=== PATIENT | female | born 1980 | race African-American/Black ===

== ENCOUNTER 2019-01-20 12:55 | Inpatient (IN) | payer OTHER ==
[2019-01-20 14:08] VITALS: BMI 30.5
[2019-01-20] MEDS ORDERED: ELECTROLYTE-148 SOLN 1,000 ML IV SCH ×2 (14:30→15:30)
[2019-01-20] MEDS ORDERED: CITRIC ACID/SODIUM CITRATE 30 ML UNIT-DOSE CUP PO ONE (14:30)
--- NOTE | 2019-01-20 15:00 | HP ---
Past Medical History - Past Medical History ...: 4 ...Para: 3 ...Term: 3 ...: 0 ...Spon : 0 ...Induced : 0 ...LMP: 04/21/18 ... Weeks Gestation by Dates: 39.1 ...EDC by Dates: 01/26/19 ...EDC by Sono: 01/25/19 - Past Surgical History Past Surgical History: Yes: Hx Myomectomy: No Hx Transabdominal Cerclage: No - Smoking History Smoking history: Never smoked Have you smoked in the past 12 months: No - Alcohol/Substance Use Hx Alcohol Use: No History of Substance Use: reports: None - Social History Usual Living Arrangement: Yes: With Spouse History of Recent Travel: No Home Medications - Allergies Allergies/Adverse Reactions: Allergies Allergy/AdvReac Type Severity Reaction Status Date / Time aspirin Allergy Verified 01/20/19 14:10 - Home Medications Home Medications: Ambulatory Orders Ferrous Sulfate 1 tab PO DAILY 01/20/19 Vits96/Iron Fum/Folic [ Tablet] 1 tab PO DAILY 01/20/19 Review of Systems - Review of Systems Constitutional: reports: No Symptoms Eyes: reports: No Symptoms HENT: reports: No Symptoms Neck: reports: No Symptoms Cardiovascular: reports: No Symptoms Respiratory: reports: No Symptoms Gastrointestinal: reports: No Symptoms Genitourinary: reports: No Symptoms Breasts: reports: No Symptoms Reported Musculoskeletal: reports: No Symptoms Integumentary: reports: No Symptoms Neurological: reports: No Symptoms Endocrine: reports: No Symptoms Hematology/Lymphatic: reports: No Symptoms Psychiatric: reports: No Symptoms Physical Exam - Maternity Vital Signs: Vital Signs Temperature 98.2 F 01/20/19 14:02 Pulse Rate 72 01/20/19 14:02 Respiratory Rate 18 01/20/19 14:02 Blood Pressure 113/59 L 01/20/19 14:02 O2 Sat by Pulse Oximetry (%) Constitutional: Yes: Well Nourished, No Distress, Calm Eyes: Yes: WNL, Conjunctiva Clear, EOM Intact HENT: Yes: WNL, Atraumatic, Normocephalic Neck: Yes: WNL, Supple, Trachea Midline Cardiovascular: Yes: WNL, Regular Rate and Rhythm Breast(s): Yes: WNL - Abdominal Exam/OB Fundal Height: 38 Number of Fetuses: Single Presentation: Vertex Intensity: Unaware Monitor Mode: External Heart Rate Location: [facility] Category: I Accelerations: Uniform - Vaginal Exam/OB Vaginal Bleediing: No Speculum Exam: No Dilatation (cm): closed Effacement (%): 0 Amniotic Membrane Status: Intact Presentation: Vertex/Position Station: -3 - Physical Exam Extremities: Yes: WNL Edema: Yes Edema: LLE: Trace, RLE: Trace Deep Tendon Reflex Grade: Normal +2 Psychiatric: Yes: WNL Hemorrhage Risk Assessment - Risk Factors Medium Risk Factors: Yes: Prior , uterine surgery,or multiple laparotomies Risk Score: 1 Risk Level: Medium Risk Problem List - Problems (1) with 39 completed weeks gestation Code(s): Z3A.39 - 39 WEEKS GESTATION OF (2) Previous section complicating Code(s): O34.219 - MATERNAL CARE FOR UNSP TYPE SCAR FROM PREVIOUS DEL (3) Advanced maternal age during Code(s): [id number] - (4) Admission for sterilization Code(s): Z30.2 - ENCOUNTER FOR STERILIZATION Assessment/Plan admit for repeat c/s , btl. risks associated with multiple c/s discussed , aware BTL is permenant, not reversiable , has failure risks and risks of ectopic
[2019-01-20] MEDS ORDERED: morphine SULFATE/PF 0.5 MG/ML (2cc Syringe - QUVA) ONE (15:22)
[2019-01-20] MEDS ORDERED: ceFAZolin SODIUM 1 GM VIAL ONE (15:24)
[2019-01-20] MEDS ORDERED: SODIUM CHLORIDE 0.9% P/F 10 ML VIAL IJ ONE (15:24)
[2019-01-20] MEDS ORDERED: KETOROLAC TROMETHAMINE 30 MG/1 ML VIAL ONE (15:41)
[2019-01-20] MEDS ORDERED: PHENYLEPHRINE HCL 10 MG/1 ML SINGLE DOSE VIAL ONE (15:41)
[2019-01-20] MEDS ORDERED: OXYTOCIN 10 UNITS/ML VIAL ONE (16:00)
[2019-01-20] MEDS ORDERED: BENZOCAINE 20% 57 GM BOTTLE TP PRN (16:29)
[2019-01-20] MEDS ORDERED: METHYLERGONOVINE MALEATE 0.2 MG/1 ML AMP IM PRN (16:29)
[2019-01-20] MEDS ORDERED: BENZOCAINE 28 GM HEMORRHOIDAL OINTMENT PR PRN (16:29)
[2019-01-20] MEDS ORDERED: IBUPROFEN 800 MG/8 ML IJ IVPB PRN (16:29)
[2019-01-20] MEDS ORDERED: diphenhydrAMINE HCL 25 MG CAPSULE (FP) PO PRN (16:29)
[2019-01-20] MEDS ORDERED: WITCH HAZEL 50% (TUCKS) 40 PAD/JAR PAD TP PRN (16:29)
[2019-01-20] MEDS ORDERED: ONDANSETRON 4 MG/2 ML VIAL IVPUSH PRN (16:29)
[2019-01-20] MEDS ORDERED: oxyCODONE HCL 5 MG TABLET PO PRN (16:29)
[2019-01-20] MEDS ORDERED: IBUPROFEN 600 MG TABLET (FP) PO PRN ×2 (16:29)
[2019-01-20] MEDS ORDERED: DEXTROSE 5%-LACTATED RINGERS 1,000 ML IV SCH (16:30)
[2019-01-20] MEDS ORDERED: OXYTOCIN 20 UNITS in 0.9% NS 20 UNIT/1,000 ML INFUS.BAG IV SCH (16:30)
[2019-01-20] MEDS ORDERED: ACETAMINOPHEN 325 MG TABLET (FP) PO PRN (16:35)
[2019-01-20] MEDS ORDERED: CEFAZOLIN 1 GM/D5W 1 GM/50 ML BAG IVPB SCH ×2 (18:00→19:00)
--- NOTE | 2019-01-20 18:21 | OP ---
Operative Note - Note: Operative Date: 01/20/19 Pre-Operative Diagnosis: 39 weeks, previous c/s, sterlization Operation: repeat LST c/s , btl Surgeon: Fady Abarca Chronometer Tester: Artur Julian Anesthesiologist/ASSISTANT CLINICAL NURSE MANAGER: Khushbu Snow Anesthesia: Spinal Specimens Removed: portion rt, lt tube. placenta Estimated Blood Loss (mls): 500 Drains & Tubes with Location: fournier Operative Report Dictated: Yes
[2019-01-20] MEDS: CEFAZOLIN 1 GM/D5W 1 GM/50 ML BAG IVPB SCH (23:14)
[2019-01-20] MEDS: ACETAMINOPHEN 325 MG TABLET (FP) PO PRN (23:54)
[2019-01-21] MEDS ORDERED: OXYTOCIN 20 UNITS in 0.9% NS 20 UNIT/1,000 ML INFUS.BAG IV SCH
--- NOTE | 2019-01-21 01:43 | OP ---
DATE OF OPERATION: 01/20/2019 PREOPERATIVE DIAGNOSIS: at 39 weeks, previous section, requests repeat section and tubal ligation. SURGEON: Ilana Abarca MD ANESTHESIA: Spinal. ANESTHESIOLOGIST: Khushbu Snow MD PATTERN DEVELOPER: TOSHA Lowe ESTIMATED BLOOD LOSS: 500 mL. DESCRIPTION OF PROCEDURE: The patient was taken to the operating room where under adequate spinal anesthesia abdomen and perineum were prepped and draped. An abdominal skin incision was made over the previous incision. Abdominal wall was cut layer by layer until the peritoneum was exposed and incised. Upon entry of the abdominal cavity, the lower uterine segment was identified. Uterovesical fold of the peritoneum was established. Bladder was pushed down. A Neisha retractor was placed in the pelvis. A low transverse uterine incision was made. Incision was extended laterally and the amniotic sac was entered. Clear fluid noted. Head delivered. Nasal sinuses were suctioned and live baby was delivered without any difficulty. The placenta was delivered manually. Uterine cavity was cleared of all remaining tissue. The uterine incision was closed in 2 layers; first layer with 0 Biosyn continuous suture and the second layer with 0 Biosyn imbricating the first layer. Bladder flap was closed with 0 Biosyn continuous suture. Both tubes and ovaries were normal. The right tube was grasped with a Ro clamp. Right tube was doubly tied with 2-0 plain. A portion of tube was removed and the same procedure was repeated for the opposite tube. Both ovaries were normal. No active bleeding was seen. All the lap pad, sponge, and instrument counts were correct. Pelvic cavity was several times irrigated and then peritoneum was closed with 0 Biosyn continuous suture. Muscles were brought together with interrupted suture of 0 Biosyn. Fascia was closed with 0 Biosyn continuous suture, subcutaneous fat with interrupted 0 Biosyn, and the skin was closed with gustavo. The patient tolerated the procedure well and left the OR in good condition. ILANA ABARCA M.D. [id number]
--- NOTE | 2019-01-21 06:03 | PN ---
Progress Note (short form) - Note Progress Note: pod 1 s/p repeat c/s ,btl no c/o , no excess vaginal bleeding Last Vital Signs Temp Pulse Resp BP Pulse Ox 98.2 F 76 18 103/51 L 100 01/21/19 02:00 01/21/19 02:00 01/21/19 05:00 01/21/19 02:00 01/20/19 17:35 abdomen soft, no distension, no cva incision dry, clean no calf tenderness lochia mild plan ambulate, advance diet cbc lovenox Problem List - Problems (1) with 39 completed weeks gestation Code(s): Z3A.39 - 39 WEEKS GESTATION OF (2) Previous section complicating Code(s): O34.219 - MATERNAL CARE FOR UNSP TYPE SCAR FROM PREVIOUS DEL (3) Advanced maternal age during Code(s): [id number] - (4) Admission for sterilization Code(s): Z30.2 - ENCOUNTER FOR STERILIZATION
[2019-01-21] MEDS: CEFAZOLIN 1 GM/D5W 1 GM/50 ML BAG IVPB SCH (06:44)
--- NOTE | 2019-01-21 07:54 | PN ---
HC Provider Note Provider Note: Anesthesia Post op Note Pt seen s/p spinal for c/section Pt in bed awake alert, comfortable - pain well controlled Pt denies h/a, n/v, excessive puritis Pt reports full return of sensory and motor b/l lower ext fournier in situ VSS no apparent anesthesia complications Elsi Soriano.
[2019-01-21 08:53] LABS: BASO % 0.2 % (0-2.0); EOS % 2.1 % (0-4.5); HEMATOCRIT 30.1 % (32.4-45.2); HEMOGLOBIN 10.5 GM/dL (10.7-15.3); MCH 30.3 pg (25.7-33.7); MEAN CELL VOLUME 86.5 fl (80-96); MEAN PLT VOLUME 10.7 fl (7.5-11.1); MONO % 7.4 % (3.8-10.2); NEUT % 80.3 % (42.8-82.8); PLATELET COUNT 124 K/MM3 (134-434); RBC 3.48 M/mm3 (3.60-5.2); RDW 14.2 % (11.6-15.6); WHITE BLOOD COUNT 8.3 K/mm3 (4.0-10.0)
[2019-01-21] MEDS: ENOXAPARIN NA (PORCINE) 40 MG/0.4 ML DISP.SYRIN SQ SCH (09:16)
[2019-01-21] MEDS: ACETAMINOPHEN 325 MG TABLET (FP) PO PRN ×3 (12:54→21:39)
[2019-01-21] MEDS: oxyCODONE HCL 5 MG TABLET PO PRN ×3 (12:55→21:39)
[2019-01-21] MEDS: SIMETHICONE 80 MG TAB.CHEW (FP) PO PRN ×2 (12:57→18:15)
[2019-01-21] MEDS: BISACODYL 10 MG SUPP.RECT RC PRN (21:40)
[2019-01-22] MEDS: oxyCODONE HCL 5 MG TABLET PO PRN ×5 (02:10→23:09)
[2019-01-22] MEDS: SIMETHICONE 80 MG TAB.CHEW (FP) PO PRN ×3 (02:10→14:11)
[2019-01-22] MEDS: ACETAMINOPHEN 325 MG TABLET (FP) PO PRN ×5 (02:10→23:08)
--- NOTE | 2019-01-22 07:45 | HP ---
Past Medical History - Past Medical History ...: 4 ...Para: 3 ...Term: 3 ...: 0 ...Spon : 0 ...Induced : 0 ...LMP: 04/21/18 ... Weeks Gestation by Dates: 39.1 ...EDC by Dates: 01/26/19 ...EDC by Sono: 01/25/19 - Past Surgical History Past Surgical History: Yes: Hx Myomectomy: No Hx Transabdominal Cerclage: No - Smoking History Smoking history: Never smoked Have you smoked in the past 12 months: No - Alcohol/Substance Use Hx Alcohol Use: No History of Substance Use: reports: None - Social History Usual Living Arrangement: Yes: With Spouse History of Recent Travel: No Home Medications - Allergies Allergies/Adverse Reactions: Allergies Allergy/AdvReac Type Severity Reaction Status Date / Time aspirin Allergy Verified 01/20/19 14:10 - Home Medications Home Medications: Ambulatory Orders Ferrous Sulfate 1 tab PO DAILY 01/20/19 Vits96/Iron Fum/Folic [ Tablet] 1 tab PO DAILY 01/20/19 Physical Exam - Maternity Vital Signs: Vital Signs Temperature 97.9 F 01/21/19 21:50 Pulse Rate 76 01/21/19 21:50 Respiratory Rate 18 01/21/19 21:50 Blood Pressure 107/71 01/21/19 21:50 O2 Sat by Pulse Oximetry (%) 100 01/20/19 17:35 - Labs Lab Results: CBC, BMP 01/21/19 08:11 Problem List - Problems (1) with 39 completed weeks gestation Code(s): Z3A.39 - 39 WEEKS GESTATION OF (2) Previous section complicating Code(s): O34.219 - MATERNAL CARE FOR UNSP TYPE SCAR FROM PREVIOUS DEL (3) Advanced maternal age during Code(s): [id number] - (4) Admission for sterilization Code(s): Z30.2 - ENCOUNTER FOR STERILIZATION
[2019-01-22] MEDS: BISACODYL 10 MG SUPP.RECT RC PRN (10:03)
[2019-01-22] MEDS: ENOXAPARIN NA (PORCINE) 40 MG/0.4 ML DISP.SYRIN SQ SCH (10:07)
--- NOTE | 2019-01-22 10:10 | PN ---
Progress Note (short form) - Note Progress Note: pod2 no c/o , ambulating, passing gas CBC, BMP 01/21/19 08:11 Last Vital Signs Temp Pulse Resp BP Pulse Ox 97.9 F 76 18 107/71 100 01/21/19 21:50 01/21/19 21:50 01/21/19 21:50 01/21/19 21:50 01/20/19 17:35 abdomen oft, no distension, BS present , incison dry,clean no calf tenderness lochia minimal plan ambulate , cbc in am Problem List - Problems (1) with 39 completed weeks gestation Code(s): Z3A.39 - 39 WEEKS GESTATION OF (2) Previous section complicating Code(s): O34.219 - MATERNAL CARE FOR UNSP TYPE SCAR FROM PREVIOUS DEL (3) Advanced maternal age during Code(s): [id number] - (4) Admission for sterilization Code(s): Z30.2 - ENCOUNTER FOR STERILIZATION
[2019-01-22] MEDS ORDERED: SENNOSIDES/DOCUSATE COMBO (SENNA PLUS) TABLET (UD) PO PRN (22:00)
[2019-01-23] MEDS: ACETAMINOPHEN 325 MG TABLET (FP) PO PRN ×3 (03:12→14:34)
[2019-01-23] MEDS: oxyCODONE HCL 5 MG TABLET PO PRN ×3 (03:13→14:33)
--- NOTE | 2019-01-23 07:57 | DS ---
Physical Exam-VULCANIZING PRESS OPERATOR Vital Signs: Vital Signs Temperature 98.5 F 01/22/19 22:00 Pulse Rate 77 01/22/19 22:00 Respiratory Rate 18 01/22/19 22:00 Blood Pressure 118/65 01/22/19 22:00 O2 Sat by Pulse Oximetry (%) 100 01/20/19 17:35 Constitutional: Yes: Well Nourished, No Distress, Calm Eyes: Yes: WNL, Conjunctiva Clear, EOM Intact HENT: Yes: WNL, Atraumatic, Normocephalic Neck: Yes: WNL, Supple, Trachea Midline Cardiovascular: Yes: WNL, Regular Rate and Rhythm Respiratory: Yes: WNL, Regular, CTA Bilaterally Gastrointestinal: Yes: WNL ...Rectal Exam: Yes: WNL Renal/: Yes: WNL ....Post : Yes: Uterus firm, Uterus non-tender, Slight lochia rubra Breast(s): Yes: WNL Musculoskeletal: Yes: WNL Extremities: Yes: WNL Edema: LLE: Trace, RLE: Trace Integumentary: Yes: WNL, Body Piercing Wound/Incision: Yes: Clean/Dry, Well Approximated, Gisela Intact Neurological: Yes: WNL, Alert, Oriented ...Motor Strength: WNL Psychiatric: Yes: WNL, Alert, Oriented Delivery - Delivery Section: Repeat (no complication), Low Flap Transverse Type of Anesthesia: Spinal EBL (cc): 500 Delivery, Single - Stages of Labor Date of Delivery: 01/20/19 Time of Delivery: 15:53 Time Placenta Delivered: 15:54 Placenta: Yes: Expressed - Condition of Radio Despatcher/Jalousie Installer Present: Yes Name: Yoli Mathew Infant Gender: Male Weight: 6 lb 11 oz Position: Right, OT Total Hours ROM (Hrs/Mins): 1 minute - 1 Minute Total Score: 9 5 Minutes Total Score: 9 - Independence Feeding Plan Initial Plan: Exclusive throughout hospitalization Discharge Summary Reason For Visit: REPEAT & BTL Current Active Problems Admission for sterilization (Acute) Advanced maternal age during (Acute) with 39 completed weeks gestation (Acute) Previous section complicating (Acute) Procedures: Principal: repeat LST c/s Other Procedures: BTL Hospital Course: no complication Condition: Good - Instructions Diet, Activity, Other Instructions: regular diet, no intercourse , follow up [facility] care 1 week, if fever, pain, heavy vaginal bleeding call MD Referrals: Fady Abarca MD [Staff Physician] - Disposition: HOME - Home Medications Comprehensive Discharge Medication List: Ambulatory Orders Ferrous Sulfate 1 tab PO DAILY 01/20/19 Vits96/Iron Fum/Folic [ Tablet] 1 tab PO DAILY 01/20/19 Ibuprofen [Motrin -] 600 mg PO QID #28 tablet 01/23/19
[2019-01-23 08:50] LABS: BASO % 0.2 % (0-2.0); EOS % 3.9 % (0-4.5); HEMATOCRIT 27.3 % (32.4-45.2); HEMOGLOBIN 9.4 GM/dL (10.7-15.3); LYMPH % 27.6 % (8-40); MCHC 34.6 g/dl (32.0-36.0); MEAN CELL VOLUME 86.6 fl (80-96); MEAN PLT VOLUME 10.8 fl (7.5-11.1); MONO % 7.9 % (3.8-10.2); NEUT % 60.4 % (42.8-82.8); PLATELET COUNT 139 K/MM3 (134-434); RBC 3.15 M/mm3 (3.60-5.2); RDW 13.9 % (11.6-15.6)
[2019-01-23] MEDS: ENOXAPARIN NA (PORCINE) 40 MG/0.4 ML DISP.SYRIN SQ SCH (10:17)
[2019-01-23] MEDS: SIMETHICONE 80 MG TAB.CHEW (FP) PO PRN ×2 (10:18→14:34)
[2019-01-23 12:50] VITALS: BP 122/70; PULSE 87; TEMP 98.4
--- NOTE | 2019-01-27 17:47 | PATH ---
Surgical Pathology Report Patient Name: RENAE MARRUFO [facility]. Rec. #: [id number] /Age/Gender: 1980 (Age: 38) / F Account: [id number] Location: [facility] OBS/GAUGE OPERATOR Taken: 01/20/2019 Received: 01/21/2019 Reported: 01/27/2019 Physicians: Fady Abarca M.D. Specimen(s) Received A: PLACENTA B: PORTION FALLOPIAN TUBE, LEFT C: PORTION FALLOPIAN TUBE, RIGHT Clinical History , x3 Final Diagnosis A. PLACENTA, SECTION: 355 G THIRD TRIMESTER PLACENTA WITH TRIVASCULAR UMBILICAL CORD AND UNREMARKABLE PLACENTAL MEMBRANES. B. FALLOPIAN TUBE, PORTION, LEFT, PARTIAL EXCISION: FULL LUMINAL PORTION OF UNREMARKABLE FALLOPIAN TUBE. C. FALLOPIAN TUBE, PORTION, RIGHT, PARTIAL EXCISION: FULL LUMINAL PORTION OF UNREMARKABLE FALLOPIAN TUBE. Electronically Signed Gaviota Rico M.D. Gross Description A. The specimen is received fresh labeled placenta and is a 355 gram, 19.0 x 14.5 x 3.0 cm. placenta with attached membranes and umbilical cord. The attached membranes are mark, translucent with focal opacities and insert marginally. The umbilical cord measures 38 cm. in length and averages 1.0 cm. in diameter. The cord inserts eccentrically, 4 cm. to the nearest margin. No true knots or strictures are identified. Cut surface of the umbilical cord reveals 3 vessels. The surface is khan-blue with minimal fibrin deposition and appropriate caliber vessels. The maternal surface is red-brown with focal defects. Sectioning reveals red-brown, spongy parenchyma. No lesions are identified. Client Delivery Specialist sections are submitted in three cassettes as follows: 1- membrane rolls and umbilical cord; 2-3- full thickness sections of placenta. B. Received in formalin labeled "portion fallopian tube left," is a 1.5 cm in length portion of fallopian tube. No fimbria are present. The outer surface is mark-soliman and smooth. Sectioning reveals an unremarkable lumen. Client Delivery Specialist sections are submitted in one cassette. C. Received in formalin labeled "portion fallopian tube right," is a 1.0 cm in length portion of fallopian tube. No fimbria are present. The outer surface is mark-soliman and smooth. Sectioning reveals an unremarkable lumen. Client Delivery Specialist sections are submitted in one cassette. 01/26/2019 [facility]01/26/2019
== END 2019-01-23 16:00 | disposition home or self-care (01) | DRG 540 ==
LOC: JLDR 12:55 → J3W 19:50
PROVIDERS: ADMIT Obstetrics & Gynecology; ATTEND Obstetrics & Gynecology
PROC: 10D00Z1 Extraction of Products of Conception, Low, Open Approach (ICD-10-PCS; principal; 2019-01-20)
PROC: 0UB70ZZ Excision of Bilateral Fallopian Tubes, Open Approach (ICD-10-PCS; 2019-01-20)
DX: O34.219 Maternal care for unspecified type scar from previous cesarean delivery (principal); Z3A.39 39 weeks gestation of pregnancy; Z37.0 Single live birth; Z30.2 Encounter for sterilization
CPT/HCPCS: 36415; 85025; 88302-TC; 88307-TC

== ENCOUNTER 2019-05-08 09:41 | Emergency (ER) | payer OTHER ==
[2019-05-08 09:56] VITALS: BP 128/72; PULSE 66; TEMP 98.5; BMI 28.8
[2019-05-08] MEDS ORDERED: ACETAMINOPHEN 325 MG TABLET (FP) PO ONE ×2 (10:02→10:08)
[2019-05-08] MEDS ORDERED: LORATADINE 10 MG TABLET PO ONE (10:08)
--- NOTE | 2019-05-08 10:08 | PDOC ---
History of Present Illness - General Chief Complaint: Cold Symptoms Stated Complaint: HEADACHE Time Seen by Provider: 05/08/19 10:01 History Source: Patient (facial pain and VALLES X 5 days) Exam Limitations: No Limitations - History of Present Illness Is this a multiple visit Asthma Patient?: No Associated Symptoms: reports: facial pain, headache, nasal congestion. denies: cough, dizziness, earache, fever/chills, lightheadedness, muscle aches, nasal drainage, shortness of breath, sore throat, wheezing Past History - Travel Close contact w/someone who was outside of country & ill: No - Past Medical History Allergies/Adverse Reactions: Allergies Allergy/AdvReac Type Severity Reaction Status Date / Time aspirin Allergy Verified 05/08/19 09:49 Home Medications: Ambulatory Orders Ferrous Sulfate 1 tab PO DAILY 01/20/19 Vits96/Iron Fum/Folic [ Tablet] 1 tab PO DAILY 01/20/19 Ibuprofen [Motrin -] 600 mg PO QID #28 tablet 01/23/19 Oxycodone HCl/Acetaminophen [Percocet 5-325 mg Tablet] 1 tab PO Q6H PRN #20 tablet MDD 4 01/23/19 Amox-Tr/K Cl [Augmentin - 875Mg Tablet] 1 tab PO BID #14 tablet 05/08/19 Fluticasone Prop 0.05% Nasal [Flonase -] 1 - 2 spray NS DAILY #1 spray.pump Ibuprofen 600 mg PO ACDIN 7 Days #30 tablet 05/08/19 Loratadine [Claritin -] 10 mg PO DAILY #7 tablet 05/08/19 Asthma: No Cancer: No Cardiac Disorders: No COPD: No Diabetes: No HTN: No Seizures: No Thyroid Disease: No - Psycho Social/Smoking Cessation Hx Smoking History: Never smoked Have you smoked in the past 12 months: No Information on smoking cessation initiated: No Hx Alcohol Use: No Drug/Substance Use Hx: No Review of Systems - Review of Systems Able to Perform ROS?: Yes Is the patient limited Indonesian proficient: No Constitutional: No: Chills, Fever HEENTM: Yes: Nose Congestion. No: Eye Pain, Blurred Vision, Recent change in vision, Double Vision, Ear Pain, Nose Pain, Nose Bleeding, Hearing Loss, Throat Pain, Throat Swelling, Dental Problems, Difficulty Swallowing Cardiac (ROS): No: Chest Pain Neurological: Yes: Headache. No: Numbness, Paresthesia, Tingling, Tremors, Unsteady Gait, Ataxia, Dizziness *Physical Exam - Vital Signs Last Vital Signs Temp Pulse Resp BP Pulse Ox 98.5 F 66 18 128/72 99 05/08/19 09:45 05/08/19 09:45 05/08/19 09:45 05/08/19 09:45 05/08/19 09:45 - Physical Exam General Appearance: Yes: Nourished HEENT: positive: EOMI, JULIA, TMs Normal, Nasal Congestion, Sinus Tenderness ( frontal), Other (frontal sinus tenderness with boggy nasal turbinates) Neck: positive: Supple Respiratory/Chest: positive: Lungs Clear, Normal Breath Sounds Cardiovascular: positive: Regular Rhythm, Regular Rate, S1, S2 Integumentary: positive: Normal Color, Dry Neurologic: positive: flavor extractor II-XII NML intact, Fully Oriented, Alert, Normal Mood/ Affect, Normal Response, Motor Strength 10/24 Medical Decision Making - Medical Decision Making 05/08/19 10:09 39 years old female with no prior medical history presents with frontal facial pain and headaches for 5 days. Patient denies any blurred vision, nausea, fever, chills + sinus tenderness on exam abx sent to pharmacy Discharge - Discharge Information Problems reviewed: Yes Clinical Impression/Diagnosis: Sinusitis Qualifiers: Sinusitis location: frontal Chronicity: acute Recurrence: not specified as recurrent Qualified Code(s): J01.10 - Acute frontal sinusitis, unspecified Clinical Impression/Diagnosis: (Ruled Out): Sinusitis chronic, frontal Condition: Stable Disposition: HOME - Admission No - Additional Discharge Information Prescriptions: Amox-Tr/K Cl [Augmentin - 875Mg Tablet] 1 tab PO BID #14 tablet Fluticasone Prop 0.05% Nasal [Flonase -] 1 - 2 spray NS DAILY #1 spray.pump Ibuprofen 600 mg PO ACDIN 7 Days #30 tablet Loratadine [Claritin -] 10 mg PO DAILY #7 tablet Prescription Drug Monitoring Program (I-STOP) results: I-STOP not reviewed - Follow up/Referral Referrals: Jackie Alamo PLODDING OPERATOR [Primary Care Provider] - - Patient Discharge Instructions Patient Printed Discharge Instructions: DI for Sinusitis Additional Instructions: you was seen for sinusitis sinusitis today. Please take antibiotics as prescribed Follow-up with your primary care doctor Reports to the emergency room with worsening symptoms occur - Post Discharge Activity
[2019-05-08] MEDS ORDERED: ACETAMINOPHEN 325 MG TABLET (FP) ONE (10:09)
[2019-05-08] MEDS ORDERED: LORATADINE 10 MG TABLET ONE (10:10)
[2019-05-09] MEDS ORDERED: LORATADINE 10 MG TABLET PO SCH (10:00)
== END 2019-05-08 10:25 | disposition home or self-care (01) ==
LOC: JER 09:41 → JERFT 09:41
DX: J01.10 Acute frontal sinusitis, unspecified (principal); Z88.6 Allergy status to analgesic agent
CPT/HCPCS: 99281-25